=== PATIENT | male | born 1980 | race African-American/Black ===

== ENCOUNTER 2021-03-29 07:50 | Emergency (ER) | payer OTHER ==
[~2021-03-29] VITALS: Ht 177.8 cm; Wt 88.0 kg
[2021-03-29 07:59] VITALS: BP 143/80
[2021-03-29] MEDS ORDERED: IBUPROFEN 600MG TABLET PO ONE (08:30)
[2021-03-29] MEDS ORDERED: ACETAMINOPHEN 325MG TABLET PO ONE (08:30)
[2021-03-29] MEDS ORDERED: CYCL10TA7 MT (09:17)
[2021-03-29] MEDS ORDERED: IBUP-2029 MT (09:17)
== END 2021-03-29 09:50 | disposition home or self-care (01) ==
LOC: ER 08:41
DX: S39.012A Strain of muscle, fascia and tendon of lower back, initial encounter (principal); S80.12XA Contusion of left lower leg, initial encounter; Z88.0 Allergy status to penicillin; W01.0XXA Fall on same level from slipping, tripping and stumbling without subsequent striking against object, initial encounter; Y93.89 Activity, other specified; Y92.89 Other specified places as the place of occurrence of the external cause; Y99.8 Other external cause status
CPT/HCPCS: 72100; 73590; 99284